=== PATIENT | female | born 1960 ===

== ENCOUNTER 2021-07-27 11:38 | Emergency (ER) | payer OTHER ==
[~2021-07-27] VITALS: Ht 162.6 cm; Wt 74.4 kg
[~2021-07-27 11:38] MED LIST: ATENOLOL50 MG PO; EFFEXOR XR150 MG; KLONOPIN1 MG/TAB PO; SEROQUEL25 MG PO; SYNTHROID150 MCG PO; SYNTHROID50 MCG PO; WELLBUTRIN SR150 MG PO; [UNRECOGNIZED DRUG - OTHER] MC
[2021-07-27] MEDS ORDERED: NEURONTIN300 MG (11:55)
[2021-07-27] MEDS ORDERED: ULTRAM50 MG (11:55)
== END 2021-07-27 18:02 ==
LOC: ER 11:38
DX: S00.83XA Contusion of other part of head, initial encounter (principal); S20.221A Contusion of right back wall of thorax, initial encounter; S70.01XA Contusion of right hip, initial encounter; S40.021A Contusion of right upper arm, initial encounter; R07.89 Other chest pain; W01.198A Fall on same level from slipping, tripping and stumbling with subsequent striking against other object, initial encounter; Y93.89 Activity, other specified; Y92.89 Other specified places as the place of occurrence of the external cause; Y99.8 Other external cause status